=== PATIENT | female | born 1985 | race Two or more races ===

== ENCOUNTER 2016-04-22 20:05 | Emergency (ER) | payer MEDICAID ==
[2016-04-22 22:08] LABS: BASO # 0.1 K/mm3 (0.0-0.2); BASO % 0.4 % (0.2-1.0); EOS # 0.4 (0.0-0.5); HEMATOCRIT 39.4 % (37.0-47.0); HEMOGLOBIN 12.8 gm/l (12.0-16.0); IMM NEUT% 0.3 % (0-1); LYMPH # 3.9 (1.0-4.8); LYMPH % 32.3 % (15-45); MEAN CORPUSCULAR HEMOGLOBIN 28.3 pg (27.0-31.0); MEAN CORPUSCULAR HGB CONC 32.5 g/dl (33.0-37.0); MEAN PLATELET VOLUME 9.4 fl (7.4-10.4); MONO # 0.8 (0.0-0.8); MONO % 6.4 % (4-12); NEUT % 57.6 % (43-75); PLATELET COUNT 359 K/mm3 (130-400); RED CELL DISTRIBUTION WIDTH 12.7 % (11.5-14.5)
[2016-04-22] MEDS ORDERED: MAALOX/LIDO2%VISC/SIMETHICONE 40 ML BOT ONE (22:09)
[2016-04-22] MEDS ORDERED: ONDANSETRON 4 MG/2ML 2 ML VIAL ONE (22:09)
[2016-04-22] MEDS ORDERED: MORPHINE SULFATE 2 MG/ML SYRINGE ONE (22:09)
[2016-04-22] MEDS ORDERED: SODIUM CHLORIDE 0.9% 1,000 ML ONE (22:09)
[2016-04-22] MEDS ORDERED: MORPHINE SULFATE 4 MG/ML SYRINGE ONE (22:09)
[2016-04-22 22:47] LABS: ALB/GLOB RATIO 1.1 (>1.0); ALBUMIN 4.1 gm/dL (3.5-5.7); CALCIUM 9.2 mg/dL (8.6-10.3)
--- NOTE | 2016-04-23 08:23 | US ---
EXAMINATION: Limited gallbladder ultrasound examination was performed. CLINICAL INDICATION: Right upper quadrant pain. COMPARISON: None FINDINGS: Gallbladder: 9.0 cm in length. Cholelithiasis: Moderate cholelithiasis is noted. There are numerous shadowing stones. The largest sludge is also evident. Gallbladder wall thickness: 2 millimeters. Pericholecystic fluid: Absent Common bile duct:Not dilated and measures 3 millimeters. Sonographic Ames's sign: None elicited. Patient on pain medication. IMPRESSION: Cholelithiasis currently without evidence of cholecystitis or biliary obstruction. Findings were communicated by [facility] to the emergency department at: 2347 hours 04/22/2016
== END 2016-04-23 00:48 | disposition home or self-care (01) ==
LOC: ED 20:05
DX: K80.20 Calculus of gallbladder without cholecystitis without obstruction (principal)
CPT/HCPCS: 83690; 84703; 85025; 80053; 76705; 96375; 99284 ×2; 96374; 96361 ×2; A9270; J2270 ×2; J2405; J7030